=== PATIENT | male | born 1970 | race Caucasian/White ===

== ENCOUNTER 2016-10-11 09:23 | Outpatient (CLI) | payer OTHER ==
--- NOTE | 2016-10-11 10:35 | DIAGNOSTIC IMAGING REPORT ---
PROCEDURE: US ABDOMEN ULTRASOUND-COMPLETE INDICATION: ABD PAIN TECHNIQUE: Card scale and color Doppler sonographic images of the abdomen were obtained without comparison. COMPARISON: None. FINDINGS: The liver demonstrates heterogeneous increased echogenicity. No mass or intrahepatic biliary dilatation. The gallbladder is normal without stones or sludge. The wall is normal thickness measuring 1.7 mm No pericholecystic fluid or [place] sign. The extrahepatic common duct is normal measuring 3.5 mm The visualized pancreas is normal without ductal dilatation or peripancreatic fluid collection. The abdominal aorta is normal in its course and caliber. The retrohepatic inferior vena cava is patent. There is appropriate hepatopetal flow in the portal vein. The right kidney measures 11.9 cm in length. The left kidney measures 11.4 cm in length. Both kidneys demonstrate normal morphology and cortical thickness without hydronephrosis, cyst, solid mass, or shadowing calculus. Color Doppler imaging demonstrates normal blood flow in each kidney. The spleen is normal in size measuring 10.4 cm in length. There is no perihepatic or perisplenic ascites. IMPRESSION: 1. Fatty liver infiltration with areas of sparing.
== END 2016-10-11 23:00 ==
LOC: US SRH 09:23
DX: R10.9 Unspecified abdominal pain (principal); K76.0 Fatty (change of) liver, not elsewhere classified